=== PATIENT | female | born 1970 | race Caucasian/White ===

== ENCOUNTER → 2017-07-24 | Outpatient (CLI) | payer BC ==
[~2017-07-24] VITALS: Ht 162.6 cm; Wt 101.7 kg
[~2017-07-24] MED LIST: PRENTAB26
[2017-07-24 13:24] VITALS: BP 137/76; PULSE 78; Ht 162.6 cm; Wt 101.7 kg
== END | disposition home or self-care (01) ==
LOC: C.NEUR 11:25
PROVIDERS: ATTEND Internal Medicine Pulmonary Disease
DX: R06.83 Snoring (principal); I10 Essential (primary) hypertension; E11.9 Type 2 diabetes mellitus without complications; E88.81 Metabolic syndrome and other insulin resistance; E78.5 Hyperlipidemia, unspecified; L71.9 Rosacea, unspecified

== ENCOUNTER → 2017-08-14 | Outpatient (CLI) | payer BC ==
--- NOTE | 2017-08-15 06:21 | PAP/PSG TECHNICIAN REPORT ---
[facility] Manufacturing Process Engineer Polysomnogram Report Study name: None Report date: 08/15/2017 Study date: 08/14/2017 Referring Physician: Dr. Theodore Swan DO Name: ISSAC PRUITT Interpreting Physician: Theodore Swan D.O. Date of : 1970 Manufacturing Process Engineer: ADRIÁN Taylor. Sex: Female Age: 47 StudyType: PSG Weight: 224 lbs Height: 47 years, Height 5' 4" Neck Circum: 17 inches BMI: 38.45 Medications: Atorvastatin 10 mg, Flonase 50 MCG, Lisinopril 5 mg, Metformin 1000 mg, Metrogel 1%, Multi Vitamin, Valtrex 1 GM Patient History 47 yr. old female here for a diagnostic sleep study in room 6. Patient complains of loud snoring. She is also going through the process for pre-approval for gastric bypass. ESS 03/03. Parameters Monitored NPSG: E1-M2, E2-M1, Fp1-M2, Fp2-M1, F3-M2, F4-M2, F4-M1, C3-M2, C4-M2, C4-M1, O1-M2, O2-M2, O2-M1, T3-M2, T4-M1, P3-M2, P4-M1, CHIN1, CHIN2, HR, EKG, Legs, PFLOW, SNOR, FLOW, CFLOW, Tidal Volume, THOR, ABDO, SpO2, PLTH, CPRESS, ETCO2 Wave, ETCO2, pH Sleep Architecture Sleep Stages Time at Lights Off 11:01:25 PM STAGES Time (min.) TST (%) Time at Lights On 5:55:55 AM Wake 33.5 -- Total Recording Time (TRT) 413.50 min. N1 28.5 8 Total Sleep Period (TSP) 403.0 min. N2 244.0 64 Total Sleep Time (TST) 380.0min. N3 46.5 12 Awake Time 33.5 min. REM 61.0 16 Wake after Sleep Onset 23.0 min. Sleep Efficiency (SE) 92 % Sleep Onset Latency (YESICA) 11.5 min. Number of Stage 1 Shifts None Awakenings 20 Stage Changes 97 Number of REM periods 7 REM 61.0 16 REM Latency 179.5 min. NREM 319.0 84 Body Position Analysis Supine Right Left Side Prone Vertical Total Sleep Time (min.) 126.0 0.0 38.5 38.48 248.5 0.0 Total Sleep Time (%) 31% 0% 10% 10 59% N/A% Total Sleep Time REM (min.) 41.5 0.0 0.0 None 19.5 0.0 Total Sleep Time NREM (min.) 76.1 0.0 38.5 None 204.4 0.0 Intermittent Wake (min.) 8.4 0.0 0.5 None 24.6 0.0 Total Sleep Period (%) 30% None None None None None Arousals Myoclonus (PLM) * Events Count Index Events Count Index Spontaneous 4 1 Events Awake (PLMW) 59 105.7 Respiratory 2 0.3 Events Asleep w/ Arousal (PLMA) 47 7.4 PLM 47 7 Events Asleep w/o Arousal (PLMS) 162 25.6 Snoring 10 2 Total Asleep 209 33.0 Total 63 10 Total 268 39 Respiratory Analysis * CA OA MA CH H RERA Total Count 4 1 0 0 39 0 44 Index 0.6 0.2 0.0 0 6.2 0 6.9 Mean Duration 15.1 10.1 0.0 0.00 23.8 0.0 22.7 Longest Duration 19.3 10.1 0.0 0.00 0.0 0.0 61.4 Respiratory Event Summary Total Supine ~Supine Right Left Prone REM NREM Apneas Count 5 5 0 N/A 0 0 4 1 Index 0.8 3 0 N/A 0.0 0 4 0 Hypopneas (4% Desat) Count 39 37 2 N/A 0 2 30 9 Index 6.2 18.9 0 N/A 0.0 0.5 29.5 1.7 Apneas & All Hypopneas Count 44 42 2 N/A 0 2 34 10 Index 6.9 21 0 N/A 0 1 33.4 1.9 Respiratory Events (Provider Engagement Executive+All Hyp+RERA) Count 44 42 2 N/A 0 2 34 10 Index 6.9 21 0 N/A 0.0 0.5 33.4 1.9 Respiratory Related Arousal Count 2 42 1 N/A 0 1 1 1 Index 0.3 1 0 N/A 0 0 1 0 Snoring Analysis Supine Right Left Prone REM NREM Total Snore duration 44.5 min Snores count 660 N/A 540 1,202 117 2,285 2,402 Snore mean duration 1.1 Sec Snores index 337 N/A 842 322 115.1 429.8 379.3 TST with snoring (%) 11.7% Desaturation Event Summary: Minimum %SpO2 Event Count Mean/Min/Max Duration(sec.) Desaturation Index % Time In Bed > 90 48 31.3 / 10.5 / 57.3 7.1 98.1 86 - 90 1 7.3 / 7.3 / 7.3 9.0 1.6 81 - 85 0 N/A 0.0 0.2 76 - 80 0 N/A 0.0 0.0 71 - 75 0 N/A 0.0 0.0 66 - 70 0 N/A 0.0 0.0 61 - 65 0 N/A 0.0 0.0 56 - 60 0 N/A 0.0 0.0 51 - 55 0 N/A 0.0 0.0 < 50 0 N/A 0.0 0.0 Total REM NREM Awake <50% 0.0 min. 0.0 min. 0.0 min. 0.0 min. 51 - 60% 0.0 min. 0.0 min. 0.0 min. 0.0 min. 61 - 70% 0.0 min. 0.0 min. 0.0 min. 0.0 min. 71 - 80% 0.0 min. 0.0 min. 0.0 min. 0.0 min. 81 - 90% 7.7 min. 6.3 min. 0.8 min. 0.5 min. 91 - 100% 405.2 min. 54.7 min. 318.0 min. 32.6 min. Average 95 94 95 95 Minimum SpO2 82 82 88 82 Desaturation Event Index 7.1 26.6 2.6 14.3 # Desat. Events below 89% 12 11 1 0 Time(%) with Saturation below 89% 0.8 0.6 0.0 0.1 Time(min.) with Saturation below 89% 3.1 2.7 0.1 0.4 Time (mins) REM (mins) NREM (mins) % of TST SpO2 Below 90% 20 15 N5 1.2 SpO2 Below 88% 5 0 0 0 Heart Rate Analysis Min (bpm) Max (bpm) Average (bpm) Awake 63 127 76 NREM 59 94 69 REM 59 84 70 Overall 59 94 69 Supplemental O2 Values Minimum O2 level: None Value Start Time End Time Manufacturing Process Engineer Comments MS. Pruitt slept in the left, supine and prone positions. No cardiac arrhythmia. PLMs noted. No bruxism noted. Snoring was noted and scored as a 3.5 on a scale of 0 through 5. (0=no snoring, 5=snoring loud enough to be heard through a closed door or down the [address] way) MS. Pruitt did not wake to use the restroom during the night. MS. Pruitt stated, it took me longer to get to sleep last night, but one I was asleep I slept well. The final report will be interpreted and signed by a sleep physician. The completed physician report will then be placed in the patient medical record. Therapy (cm H2O) 0 TIB (min.) 413.5 TST (min.) 380.0 Sleep Onset (min.) 11.5 REM Onset From Sleep (min.) 179.5 Sleep Efficiency % 92 Wakefulness (%) 8 Wakefulness (min.) 33.5 NREM 1 (%) 8 NREM 1 (min.) 28.5 NREM 2 (%) 64 NREM 2 (min.) 244.0 NREM 3 (%) 12 NREM 3 (min.) 46.5 REM (%) 16 REM (min.) 61.0 # Arousals 63 Arousal Index 10 # Snore 2,402 Snore Index 379.3 AHI 6.9 AHI Supine 21 AHI Non-Supine 0 NREM AHI 1.9 REM AHI 33.4 RDI 6.9 # Obstructive Apnea 1 # Central Apnea 4 # Mixed Apnea 0 # Hypopneas 39 RERAs 0 Total Respiratory Events 45 Time Below SpO2 89% (min.) 2.8 Mean NREM SpO2 (%) 95 Mean REM SpO2 (%) 94 Mean Sleep SpO2 (%) 95 Min NREM SpO2 (%) 88 Min REM SpO2 (%) 82 Position Supine (min.) 126.0 Position Non-supine (min.) 262.4 LM Index Sleep 33.0 LM Index NREM 34.0 LM Index REM 27.5 Mean Heart Rate (bpm) 69 Min Heart Rate (bpm) 59
--- NOTE | 2017-08-19 08:48 | Sleep Study ---
Sleep Study Report Date of Service: 08/14/2017 Sleep Study Report Clinical data: The patient is a 47-year-old female who was going through an evaluation in preparation for gastric bypass. She has an elevated BMI of 38.45. The patient has a history of snoring. Comorbidities include hypertension, diabetes, and metabolic syndrome. She is referred by the nutrition and weight management department at [facility]. This was an in-lab diagnostic polysomnography. Her Minden sleepiness score is 4 out of a possible 24. Sleep architecture: The total sleep period was 403 minutes. The total sleep time was 380 minutes. The sleep efficiency was normal at 92 percent. Sleep onset latency was 11.5 minutes. Wake after sleep onset was 23 minutes. REM latency was prolonged to 179.5 minutes. Sleep consisted of stage N1 8 percent, stage N2 64 percent, stage N3 12 percent , stage REM 16 percent. Arousal data: The patient had a total of 63 arousals including 4 spontaneous arousals, 2 respiratory arousals, 47 PLM arousals, and 10 snoring arousals. The arousal index was 10. PLM data: The patient had a total of 209 periodic limb movements of sleep for a PLM index of 33. There were 47 arousals associated with limb movements for a PLM arousal index of 7.4. EKG: The underlying cardiac rhythm was normal sinus. The cardiac rates ranged from 59 to 94 beats per minute with an average heart rate of 69 beats per minute. No arrhythmia was noted. Respiratory data: The patient had a total of 44 respiratory events including 4 central apneas, 1 obstructive apnea, and 39 hypopneas. Hypopneas were scored according to the 4 percent desaturation rule. The longest apnea was 19.3 seconds. The mean duration of the hypopneas was 23.8 seconds. The apnea-hypopnea index was mildly elevated at 6.9. This reflects mild sleep apnea. All of the respiratory events occurred when the patient was supine. The apnea hypopnea index supine was 21. Most of the events occurred when she was in REM sleep. The REM apnea-hypopnea index was 33.4. Oximetry data: The average saturation for the night was 95 percent. The minimum saturation was 82 percent. The desaturations occurred during REM sleep. There was a total of only 3.1 minutes with saturations less than 89 percent. Calculus Professor comments: The patient slept on the left, supine, and prone positions. No cardiac arrhythmia. PLM noted. No bruxism noted. Snoring was noted and scored as a 3.5 on a scale of 0 through 5. Impressions: 1. Obstructive sleep apnea-mild 2. Periodic limb movement disorder Comments: The patient had a near normal sleep architecture. Her sleep efficiency was normal. She had a modest number of limb movements. She did not complain of any symptoms regarding restless legs however. She had mild sleep apnea. The events all occurred when she was in the supine position and the majority occurred during REM sleep when she happened to be supine as well. She denies significant symptoms regarding sleep apnea. She does have comorbidities as noted above. Thus treatment of the sleep apnea could be considered. Recommendations: 1. The patient is advised to continue with her weight loss efforts. 2. It is strongly advised that the patient avoid sleeping in the supine position. She clearly had more respiratory events when she was supine. 3. Consideration could be given to a trial of nasal CPAP Copies To 1: Theodore Swan,
== END | disposition home or self-care (01) ==
LOC: C.NEUR 21:00
PROVIDERS: ATTEND Internal Medicine Pulmonary Disease
DX: G47.33 Obstructive sleep apnea (adult) (pediatric) (principal)